=== PATIENT | female | born 1960 | race Caucasian/White ===

== ENCOUNTER → 2016-11-11 | Outpatient (CLI) | payer OTHER ==
[2016-11-11 13:41] VITALS: BP 155/90; PULSE 71; RESP 16; TEMP 98.6
--- NOTE | 2016-11-11 13:42 | P.HPBAR ---
Bariatric H&P - History & Physicial H&P Date: 11/11/16 History & Physicial: Visit/CC: Band Adj Patient initial contact: Initial weight: 84.964 kg Initial weight in pounds: 187.00 Height: Initial BMI: Last weight: Current weight: 84.964 kg Current weight in pounds: 187.00 Current BMI: [place] body weight (based on NIH guidelines): Excess body weight loss: The patient is a 56 year-old F who presents for Bariatric Assessment. Presents today for lab band follow. She's not been seen several years. She had her lap band performed in June 2013. Patient's had dysphagia for approximately 2 months. Past Medical History Past Medical History: GERD/Reflux, Hypertension, Thyroid Disorder History of Any Multi-Drug Resistant Organisms: None Reported Past Surgical History: Appendectomy, Bariatric Surgery, Section, Cholecystectomy, Hysterectomy Past Anesthesia/Blood Transfusion Reactions: No Reported Reaction Past Psychological History: No Psychological Hx Reported Smoking Status: Never smoker Past Alcohol Use History: None Reported Past Drug Use History: None Reported Surgical - Exam Vital Signs Temp Pulse Resp BP 98.6 F 71 16 155/90 11/11/16 13:37 11/11/16 13:37 11/11/16 13:37 11/11/16 13:37 - General well developed, no distress - Eyes PERRL - ENT normal pinna - Respiratory normal expansion - Cardiovascular Rhythm: regular - Abdomen Abdomen: soft, non tender Hernia: incisional (Small incisional hernia located umbilicus) Bariatric Assessment & Plan Plan: The patient has had dysphagia and GERD. Her LAP-BAND was emptied. 5 mL removed LAP-BAND. She'll follow-up in one month. Bariatric Checklist Checklist: Plan: Checklist: EGD: 1. Hiatal hernia: 2. H. Pylori: HgbA1c: Vitamin D: Smoking: Never smoker Primary care physician referral: Psychiatry clearance: Cardiology clearance: Sleep study: Diet journal: VTE risk score: VTE risk level: Rehab needs at discharge:
--- NOTE | 2016-11-11 14:38 | FL ---
EXAMINATION TYPE: FL barium swallow DATE OF EXAM ORDERED: 11/11/2016 2:29 PM HISTORY: GERD following lap band procedure. COMPARISON: None. FINDINGS: A billiard table mechanic film demonstrates cholecystectomy clips in the right upper quadrant. A lap band is in place with normal orientation. The patient drank barium of these. There is minimal holdup at the level of the lap band. There was pr ompt contrast of the contrast through the lap band and into the stomach. There was no evidence of pro lapse. IMPRESSION: STATUS POST LAP BAND.
== END | disposition home or self-care (01) ==
LOC: BARWHC3 12:54
PROVIDERS: ATTEND Surgery
DX: Z48.815 Encounter for surgical aftercare following surgery on the digestive system (principal); R13.10 Dysphagia, unspecified; K21.9 Gastro-esophageal reflux disease without esophagitis; Z98.84 Bariatric surgery status; Z98.890 Other specified postprocedural states
CPT/HCPCS: 74220; 99212

== ENCOUNTER → 2016-12-09 | Outpatient (CLI) | payer OTHER ==
[2016-12-09 14:14] VITALS: BP 167/94; PULSE 80; RESP 16; TEMP 98.7
--- NOTE | 2016-12-09 16:34 | P.HPBAR ---
Bariatric H&P - History & Physicial H&P Date: 12/09/16 History & Physicial: Visit/CC: band fill Patient initial contact: Initial weight: 84.964 kg Initial weight in pounds: 187.31 Height: Initial BMI: Last weight: Current weight: 86.239 kg Current weight in pounds: 190.00 Current BMI: [place] body weight (based on NIH guidelines): Excess body weight loss: The patient is a 56 year-old F who presents for Bariatric Assessment. Patient presents today for [place] adjusted. She currently feels hungry. She has some complaints of a small incisional hernia at her umbilicus. Past Medical History Past Medical History: GERD/Reflux, Hypertension, Thyroid Disorder History of Any Multi-Drug Resistant Organisms: None Reported Past Surgical History: Appendectomy, Bariatric Surgery, Section, Cholecystectomy, Hysterectomy Past Anesthesia/Blood Transfusion Reactions: No Reported Reaction Past Psychological History: No Psychological Hx Reported Smoking Status: Never smoker Past Alcohol Use History: None Reported Past Drug Use History: None Reported Surgical - Exam Vital Signs Temp Pulse Resp BP 98.7 F 80 16 167/94 12/09/16 14:11 12/09/16 14:11 12/09/16 14:11 12/09/16 14:11 - General well developed, no distress - Eyes PERRL - ENT normal pinna - Neck no masses - Respiratory normal expansion - Cardiovascular Rhythm: regular - Abdomen Abdomen: soft Hernia: incisional (Small incisional hernia located at the umbilicus) Bariatric Assessment & Plan Plan: Patient LAP-BAND adjustment. She had 1 mL added to her band. Patient was scheduled on January 08 for laparoscopic robotic system repair of incisional hernia. Bariatric Checklist Checklist: Plan: Checklist: EGD: 1. Hiatal hernia: 2. H. Pylori: HgbA1c: Vitamin D: Smoking: Never smoker Primary care physician referral: Psychiatry clearance: Cardiology clearance: Sleep study: Diet journal: VTE risk score: VTE risk level: Rehab needs at discharge:
== END | disposition home or self-care (01) ==
LOC: BARWHC3 13:04
PROVIDERS: ATTEND Surgery
DX: Z48.815 Encounter for surgical aftercare following surgery on the digestive system (principal); Z98.84 Bariatric surgery status; K43.2 Incisional hernia without obstruction or gangrene
CPT/HCPCS: 99212

== ENCOUNTER 2017-01-29 06:52 | Observation (INO) | payer OTHER ==
[2017-01-27 15:53] VITALS: BMI 30.7
[~2017-01-29 06:52] MED LIST: DEXAMETHASONE SOD PHOSPHATE 10 MG/ML 1 ML VIAL IV ONE; FAMOTIDINE 20 MG/2 ML VIAL IV PRN; HEPARIN SODIUM,PORCINE 5,000 UNIT/ML 1 ML VIAL SQ ONE; LIDOCAINE 1% 20 ML VIAL (10MG/ML) FOR IV START INTRADERMA PRN; MIDAZOLAM 2 MG/2 ML VIAL IV PRN; ceFAZolin 2 GM in SODIUM CHLORIDE 0.9% 100 ML IVPB ONE
--- NOTE | 2017-01-29 08:02 | P.GSHP ---
History of Present Illness H&P Date: 01/29/17 Chief Complaint: Incarcerated incisional hernia This is a 56-year-old female who presents today for laparoscopic robotic assistance repair of incarcerated incisional hernia. Patient has developed a mass at the superior portion of her low midline incision. - Constitutional Constitutional: Reports as per HPI Past Medical History Past Medical History: GERD/Reflux, Hypertension, Thyroid Disorder Additional Past Medical History / Comment(s): HAS LAP BAND History of Any Multi-Drug Resistant Organisms: None Reported Past Surgical History: Appendectomy, Bariatric Surgery, Section, Cholecystectomy, Hysterectomy Additional Past Surgical History / Comment(s): LAP BAND 2014 Past Anesthesia/Blood Transfusion Reactions: No Reported Reaction Past Psychological History: No Psychological Hx Reported Smoking Status: Never smoker Past Alcohol Use History: Occasional Past Drug Use History: None Reported - Past Family History Mother Family Medical History: No Reported History Medications and Allergies Home Medications Medication Instructions Recorded Confirmed Type Diovan (Unknown Dose) 1 tab PO DAILY 01/27/17 01/29/17 History Synthroid (Unknown Dose) 1 tab PO DAILY 01/27/17 01/29/17 History Allergies Allergy/AdvReac Type Severity Reaction Status Date / Time No Known Allergies Allergy Verified 01/29/17 07:18 Surgical - Exam Vital Signs Temp Pulse Resp BP Pulse Ox 97.9 F 67 18 180/85 97 01/29/17 07:16 01/29/17 07:16 01/29/17 07:16 01/29/17 07:16 01/29/17 07:16 - General well developed, no distress - Eyes PERRL - ENT normal pinna - Neck no masses - Respiratory normal expansion - Abdomen Abdomen: soft, non tender (5 cm incarcerated incisional hernia located superior portion of midline incision above the umbilicus.) Assessment and Plan Plan: Incarcerated incisional hernia. We'll perform laparoscopic robotic assistance repair.
[2017-01-29] MEDS: LACTATED RINGERS 1,000 ML IV SCH ×2 (08:05→20:23)
[2017-01-29] MEDS: ONDANSETRON 4 MG/2 ML VIAL IVP PRN ×2 (08:06→11:45)
[2017-01-29] MEDS ORDERED: PROPOFOL 10 MG/ML 20 ML VIAL IV ONE (08:12)
[2017-01-29] MEDS ORDERED: ROCURONIUM BROMIDE 10 MG/ML 10 ML VIAL IV ONE (08:12)
[2017-01-29] MEDS ORDERED: NEOSTIGMINE 1 MG/ML 10 ML VIAL ONE (08:12)
[2017-01-29] MEDS ORDERED: fentaNYL (PF) 50 MCG/ML 2 ML AMP ONE (08:12)
[2017-01-29] MEDS ORDERED: KETOROLAC 30 MG/ML 1 ML VIAL ONE (08:12)
[2017-01-29] MEDS ORDERED: GLYCOPYRROLATE 0.2 MG/ML 2 ML VIAL ONE (08:12)
[2017-01-29] MEDS ORDERED: SUCCINYLCHOLINE CHLORIDE 100 MG/5 ML SYR IV ONE (08:12)
[2017-01-29] MEDS ORDERED: MIDAZOLAM 2 MG/2 ML VIAL ONE (08:12)
[2017-01-29] MEDS ORDERED: BUPIVACAIN-EPI 0.25%-1:200,000 30 ML VIAL SQ ONE ×2 (08:37→08:48)
[2017-01-29] MEDS ORDERED: ACETAMINOPHEN TAB 325 MG TAB PO PRN (10:07)
[2017-01-29] MEDS ORDERED: NALOXONE 0.4 MG/ML 1 ML VIAL IV PRN (10:07)
[2017-01-29] MEDS ORDERED: LACTATED RINGERS 1,000 ML IV ONE (10:07)
[2017-01-29] MEDS ORDERED: HYDROcodone/APAP 5-325MG 1 EACH TAB PO PRN (10:07)
[2017-01-29] MEDS ORDERED: ACETAMINOPHEN IV (For NPO) 1,000 MG in EMPTY BAG 1 BAG IVPB ONE (10:07)
--- NOTE | 2017-01-29 10:15 | P.OP ---
Date of Procedure: 01/29/17 Preoperative Diagnosis: Incarcerated incisional hernia Postoperative Diagnosis: Adhesions Incarcerated incisional hernia Procedure(s) Performed: Laparoscopic robotic-assisted repair of incarcerated incisional hernia Laparoscopic lysis of adhesions Anesthesia: MELISA Surgeon: Ayaan Valentine Estimated Blood Loss (ml): 15 Pathology: none sent Condition: stable Disposition: PACU Description of Procedure: The patient's placed the operative table in the supine position. She received general anesthesia. Her abdomen was prepped and draped in the usual sterile fashion. The abdomen skin incision sites were anesthetized 1% local Xylocaine. Next using an 11 blade a skin incision was made and left quadrant and then using a 5 mm blade was trocar under direct visualization the peritoneal cavity was entered. And then the abdomen was then insufflated. After adequate insufflation the laparoscope placed back into the peritoneal cavity. Patient was noted to have significant adhesions along her low midline incision. Next a 8 mm robotic trocar was placed in the left lower quadrant and then a 12 mm trocar was placed the left lateral position after the patient was placed in the left side up position. The original 5 mm trocar was exchanged for an 8 mm trocar and then the patient was docked to the da Ha robot. Using electrocautery the adhesions taken down the midline during the dissection of the adhesions there was a serosal tear of the small bowel. The serosal tear was examined there appeared to be no evidence of perforation of the bowel the serosal tear was repaired using 3-0 Vicryl suture. The hernia was visualized. The incarcerated omentum was reduced. And then the hernia was repaired with OV lock suture. After the fascial repair was performed the hernia repair was buttressed with ventral light ST mesh. The mesh was secured with 20 the lock suture. Patient sent to recovery in stable condition At this point the patient was undocked the robot. The needles were retrieved. The abdomen was irrigated with the laparoscopic irrigation is no bleeding seen. The 12 mm trocar was withdrawn and then the [place] suture passer used to close the 12 mm trocar site. The trochars withdrawn. And then the skin was closed interrupted 3-0 Monocryl suture. Dermabond dressings was applied. Patient was sent to recovery in stable condition.
[2017-01-29] MEDS: HYDROmorphone 1 MG/ML 1 ML SYRINGE IVP PRN ×6 (10:26→22:24)
[2017-01-29] MEDS: KETOROLAC 30 MG/ML 1 ML VIAL IVP SCH ×2 (12:37→18:33)
[2017-01-30] MEDS: KETOROLAC 30 MG/ML 1 ML VIAL IVP SCH ×2 (00:35→05:58)
[2017-01-30 01:02] VITALS: RESP 16
[2017-01-30 06:57] LABS: Basophils % (A) 0 %; CH 31.3; CHCM 34.1; Eosinophils % (A) 0 %; HCT 33.3 % (34.0-46.0); HDW 2.52; Luc # (Auto) 0.11; Luc % (Auto) 1; Lymphocytes # (A) 1.7 k/uL (1.0-4.8); Lymphocytes % (A) 18 %; MCH 30.4 pg (25.0-35.0); MCHC 32.9 g/dL (31.0-37.0); MCV 92.2 fL (80.0-100.0); Mean Platelet Volume 7.8; Monocytes # (A) 0.5 k/uL (0-1.0); Monocytes % (A) 5 %; Neutrophils # (A) 7.3 k/uL (1.3-7.7); Neutrophils % (A) 77 %; RBC 3.61 m/uL (3.80-5.40); WBC 9.6 k/uL (3.8-10.6); WBC (Perox) 9.32
[2017-01-30 08:23] VITALS: BP 131/75; PULSE 62
[2017-01-30 08:55] VITALS: TEMP 98.1
[2017-01-30] MEDS ORDERED: LEVOTHYROXINE 125 MCG TAB PO SCH (09:00)
[2017-01-30] MEDS ORDERED: VALSARTAN 160 MG TAB PO SCH (09:00)
[2017-01-30] MEDS ORDERED: ENOXAPARIN 40 MG/0.4 ML SYRINGE SQ SCH (09:00)
--- NOTE | 2017-01-30 10:53 | P.DS ---
Providers Date of admission: 01/30/17 00:17 Expected date of discharge: 01/30/17 Attending physician: Ayaan Valentine Consults: 01/29/17 10:07 Consult Physician Routine Consulting Provider: Steven Frazier Consult Reason/Comments: Medical management Do you want consulting provider notified?: Yes Primary care physician: Stated None Hospital Course: Patient is a 56-year-old female with medical history significant for incarcerated incisional hernia. Patient presented to the hospital for elective robotic assistance repair of incarcerated incisional hernia. Patient also underwent laparoscopic lysis of adhesions. Patient tolerated procedure well. Patient had an uneventful postoperative course. Patient was deemed stable for discharge to home with close follow-up in the outpatient setting. Discharge diagnoses: Adhesions status post laparoscopic lysis of adhesions. Incarcerated incisional hernia status post laparoscopic robotic-assisted repair of incarcerated incisional hernia. The above impression and plan have been discussed and directed by Dr. Valentine. Moe CAREY acting as scribe for Dr. Valentine. Procedures: Laparoscopic robotic-assisted repair of incarcerated incisional hernia; Laparoscopic lysis of adhesions Patient Condition at Discharge: Good Plan - Discharge Summary New Discharge Prescriptions: Docusate [Colace] 100 mg PO BID #20 capsule HYDROcodone/APAP 7.5-325MG [[place] 7.5-325] 1 tab PO Q6HR PRN #28 tab PRN Reason: Pain Discharge Medication List Levothyroxine Sodium [Synthroid] 125 mcg PO DAILY 01/27/17 [History] Valsartan [Diovan] 160 mg PO DAILY 01/27/17 [History] Docusate [Colace] 100 mg PO BID #20 capsule 01/30/17 [Rx] HYDROcodone/APAP 7.5-325MG [[place] 7.5-325] 1 tab PO Q6HR PRN #28 tab 01/30/17 [ Rx] Follow up Appointment(s)/Referral(s): Steven Frazier MD [STAFF PHYSICIAN] - 1 Week Ayaan Valentine MD [STAFF PHYSICIAN] - 1 Week Patient Instructions/Handouts: Laparoscopic Herniorrhaphy (DC) Activity/Diet/Wound Care/Special Instructions: No heavy lifting, pushing, or pulling items greater than 10 pounds. Full liquid diet for 2 days then advance to regular diet Shower daily, no soaking in bath tubs, pools, or hot tubs. No driving while taking pain medication. Notify surgeon with any signs or symptoms of infection, increased pain, or not tolerating diet. Discharge Disposition: HOME SELF-CARE
== END 2017-01-30 11:58 | disposition home or self-care (01) ==
LOC: OR 06:52 → 6PED 10:04 → OR 01-30 00:17
PROVIDERS: ADMIT Surgery; ATTEND Surgery
DX: K43.0 Incisional hernia with obstruction, without gangrene (principal); K21.9 Gastro-esophageal reflux disease without esophagitis; K66.0 Peritoneal adhesions (postprocedural) (postinfection); I10 Essential (primary) hypertension; E07.9 Disorder of thyroid, unspecified; Z98.84 Bariatric surgery status; Z79.899 Other long term (current) drug therapy
CPT/HCPCS: 49329; 49655; S2900; 85025; 96361; 96374; 96376

== ENCOUNTER → 2017-02-10 | Outpatient (CLI) | payer OTHER ==
[2017-02-10 13:56] VITALS: BP 128/77; PULSE 71; TEMP 98.1; BMI 30.9
--- NOTE | 2017-02-10 14:52 | P.HPBAR ---
Bariatric H&P - History & Physicial H&P Date: 02/10/17 History & Physicial: Visit/CC: follow up visit from hernia repair Patient initial contact: Initial weight: 84.964 kg Initial weight in pounds: 187.31 Height: 5 ft 6 in Initial BMI: 30.2 Last weight: Current weight: 87.09 kg Current weight in pounds: 192.00 Current BMI: 30.9 [place] body weight (based on NIH guidelines): 58.967 kg Excess body weight loss: The patient is a 56 year-old F who presents for Bariatric Assessment. The patient presents today in the bariatric clinic clinic. She is status post ventral hernia repair. She has some minimal complaints of pain near her laparoscopic incisions. Review of Systems Constitutional: Reports as per HPI Past Medical History Past Medical History: GERD/Reflux, Hypertension, Thyroid Disorder Additional Past Medical History / Comment(s): HAS LAP BAND History of Any Multi-Drug Resistant Organisms: None Reported Past Surgical History: Appendectomy, Bariatric Surgery, Section, Cholecystectomy, Hernia Repair, Hysterectomy Additional Past Surgical History / Comment(s): LAP BAND 2014 Past Anesthesia/Blood Transfusion Reactions: No Reported Reaction Past Psychological History: No Psychological Hx Reported Smoking Status: Never smoker Past Alcohol Use History: Occasional Past Drug Use History: None Reported - Past Family History Mother Family Medical History: No Reported History Father History Unknown: Yes Family Medical History: Hypertension, Liver Disease, Myocardial Infarction ([place]) Surgical - Exam Vital Signs Temp Pulse BP 98.1 F 71 128/77 02/10/17 13:50 02/10/17 13:50 02/10/17 13:50 - General well developed, no distress - Eyes PERRL - ENT normal pinna - Neck no masses - Respiratory normal expansion - Cardiovascular Rhythm: regular - Abdomen Abdomen: soft, non tender Bariatric Assessment & Plan Plan: Status post laparoscopic robotic-assisted repair of ventral hernia. Patient did quite well. The patient will follow-up with bariatric clinic in 1 month. Bariatric Checklist Checklist: Plan: Checklist: EGD: 1. Hiatal hernia: 2. H. Pylori: HgbA1c: Vitamin D: Smoking: Never smoker Primary care physician referral: dr Calixto Psychiatry clearance: Cardiology clearance: Sleep study: Diet journal: VTE risk score: VTE risk level: Rehab needs at discharge:
== END | disposition home or self-care (01) ==
LOC: BARWHC3 12:42
PROVIDERS: ATTEND Surgery
DX: Z09 Encounter for follow-up examination after completed treatment for conditions other than malignant neoplasm (principal); K21.9 Gastro-esophageal reflux disease without esophagitis; I10 Essential (primary) hypertension; Z98.84 Bariatric surgery status
CPT/HCPCS: 99211

== ENCOUNTER → 2017-03-10 | Outpatient (CLI) | payer OTHER ==
[2017-03-10 15:48] VITALS: BP 131/83; PULSE 84; RESP 16; TEMP 98.5; BMI 31.4
--- NOTE | 2017-03-10 16:16 | P.HPBAR ---
Bariatric H&P - History & Physicial H&P Date: 03/10/17 History & Physicial: Visit/CC: bariatric follow up Patient initial contact: Initial weight: 84.964 kg Initial weight in pounds: 187.31 Height: 5 ft 6 in Initial BMI: 30.2 Last weight: Current weight: 88.133 kg Current weight in pounds: 194.30 Current BMI: 31.4 [place] body weight (based on NIH guidelines): 58.967 kg Excess body weight loss: The patient is a 56 year-old F who presents for Bariatric Assessment. Patient states that she has some complaints in the left lower quadrant. She also has some pain over her low midline incision. She's had weight gain. She is requesting a fill. Past Medical History Past Medical History: GERD/Reflux, Hypertension, Thyroid Disorder Additional Past Medical History / Comment(s): HAS LAP BAND History of Any Multi-Drug Resistant Organisms: None Reported Past Surgical History: Appendectomy, Bariatric Surgery, Section, Cholecystectomy, Hernia Repair, Hysterectomy Additional Past Surgical History / Comment(s): LAP BAND 2013 Past Anesthesia/Blood Transfusion Reactions: No Reported Reaction Past Psychological History: No Psychological Hx Reported Smoking Status: Never smoker Past Alcohol Use History: Occasional Past Drug Use History: None Reported - Past Family History Mother Family Medical History: No Reported History Father History Unknown: Yes Family Medical History: Hypertension, Liver Disease, Myocardial Infarction ([place]) Surgical - Exam Vital Signs Temp Pulse Resp BP 98.5 F 84 16 131/83 03/10/17 15:43 03/10/17 15:43 03/10/17 15:43 03/10/17 15:43 - General well developed, no distress - Eyes PERRL - ENT normal pinna - Neck no masses - Respiratory normal expansion - Cardiovascular Rhythm: regular - Abdomen Abdomen: soft, non tender Bariatric Assessment & Plan Plan: The patient LAP-BAND was adjusted. She had 0.5 mL added to her band. She currently is 4.5 mL in the band. She will follow-up in one month recheck. Bariatric Checklist Checklist: Plan: Checklist: EGD: 1. Hiatal hernia: 2. H. Pylori: HgbA1c: Vitamin D: Smoking: Never smoker Primary care physician referral: dr Calixto Psychiatry clearance: Cardiology clearance: Sleep study: Diet journal: VTE risk score: VTE risk level: Rehab needs at discharge:
== END | disposition home or self-care (01) ==
LOC: BARWHC3 14:31
PROVIDERS: ATTEND Surgery
DX: Z09 Encounter for follow-up examination after completed treatment for conditions other than malignant neoplasm (principal); I10 Essential (primary) hypertension; K21.9 Gastro-esophageal reflux disease without esophagitis; Z98.84 Bariatric surgery status
CPT/HCPCS: 99211

== ENCOUNTER → 2018-06-15 | Outpatient (CLI) | payer BC ==
--- NOTE | 2018-06-15 16:56 | US ---
EXAMINATION TYPE: US thyroid st tissue head/neck DATE OF EXAM: 06/15/2018 COMPARISON: NONE CLINICAL HISTORY: 57-year-old female E03.9 Acquired hypothyroidism. TECHNIQUE: Multiple sonographic images of the thyroid gland are obtained. FINDINGS: GLAND SIZE: Right Lobe: 1.7 x 1.1 x 1.1 cm Overall Parenchyma: heterogenous Left Lobe: 3.1 x 1.0 x 1.0 cm Overall Parenchyma: heterogeneous Isthmus Thickness: 0.2 cm NODULES RIGHT: # of nodules measured on right: 0 LEFT: # of nodules measured on left: 0 ISTHMUS: # of nodules measured in the isthmus: 0 Bilateral neck scanned, no evidence of lymphadenopathy. IMPRESSION: Small heterogeneous gland in keeping with chronic hypothyroidism. No discrete nodule.
== END ==
LOC: RADUSWWP 12:07
PROVIDERS: ATTEND Internal Medicine
DX: E03.9 Hypothyroidism, unspecified (principal)
CPT/HCPCS: 76536

== ENCOUNTER → 2020-11-28 | Outpatient (CLI) | payer BC ==
--- NOTE | 2020-11-30 11:43 | MM ---
Reason for exam: screening (asymptomatic). Last mammogram was performed 17 years and 4 months ago. Physical Findings: A clinical breast exam by your physician is recommended on an annual basis and results should be correlated with mammographic findings. MG 3D Screening Mammo W/Cad Bilateral CC and MLO view(s) were taken. No prior studies available for comparison. The breast tissue is heterogeneously dense. This may lower the sensitivity of mammography. Finding: There are typically benign coarse heterogeneous, diffuse/scattered calcifications in both breasts. Focal asymmetry 6 o'clock middle position. ASSESSMENT: Probably benign, BI-RAD 3 RECOMMENDATION: Follow-up diagnostic mammogram of the right breast in 6 months.
== END | disposition home or self-care (01) ==
LOC: RADMAMWWP 08:03
PROVIDERS: ATTEND Internal Medicine
DX: Z12.31 Encounter for screening mammogram for malignant neoplasm of breast (principal)
CPT/HCPCS: 77063; 77067

== ENCOUNTER → 2021-03-05 | Outpatient (CLI) | payer BC ==
[2021-03-05 13:27] VITALS: BP 158/88; PULSE 80; RESP 18; TEMP 98.4; BMI 37.5
--- NOTE | 2021-03-13 12:44 | P.HPBAR ---
Bariatric H&P - History & Physicial H&P Date: 03/05/21 History & Physicial: Visit/CC: follow up / lap band Patient initial contact: Initial weight: 84.964 kg Initial weight in pounds: 187.31 Height: 5 ft 3 in Initial BMI: 33.1 Last weight: Current weight: 96.162 kg Current weight in pounds: 212.00 Current BMI: 37.5 [place] body weight (based on NIH guidelines): 52.163 kg Excess body weight loss: The patient is a 60 year-old F who presents for Bariatric Assessment. Patient resents today for LAP-BAND follow-up. She's had complete GERD. Past Medical History Past Medical History: GERD/Reflux, Hypertension, Thyroid Disorder Additional Past Medical History / Comment(s): HAS LAP BAND History of Any Multi-Drug Resistant Organisms: None Reported Past Surgical History: Appendectomy, Bariatric Surgery, Section, Cholecystectomy, Hernia Repair, Hysterectomy Additional Past Surgical History / Comment(s): LAP BAND 2014 Past Anesthesia/Blood Transfusion Reactions: No Reported Reaction Past Psychological History: No Psychological Hx Reported Smoking Status: Never smoker, Second hand smoke exposure Past Alcohol Use History: Occasional Past Drug Use History: None Reported - Past Family History Mother Family Medical History: No Reported History Father History Unknown: Yes Family Medical History: Hypertension, Liver Disease, Myocardial Infarction ([place]) Surgical - Exam Vital Signs Temp Pulse Resp BP 98.4 F 80 18 158/88 03/05/21 13:19 03/05/21 13:19 03/05/21 13:19 03/05/21 13:19 - General well developed, well nourished, no distress - Eyes PERRL - ENT normal pinna - Neck no masses - Respiratory normal expansion - Cardiovascular Rhythm: regular - Abdomen Abdomen: soft, non tender Bariatric Assessment & Plan Plan: Patient's lap band adjustment she had 1 mL removed from her LAP-BAND. She'll follow-up in 4 weeks. Bariatric Checklist Checklist: Plan: Checklist: EGD: 1. Hiatal hernia: 2. H. Pylori: HgbA1c: Vitamin D: Smoking: Never smoker Primary care physician referral: Dr. Torres Psychiatry clearance: Cardiology clearance: Sleep study: Diet journal: VTE risk score: VTE risk level: Rehab needs at discharge:
== END ==
LOC: BARWHC3 13:03
PROVIDERS: ATTEND Surgery
DX: Z46.51 Encounter for fitting and adjustment of gastric lap band (principal); I10 Essential (primary) hypertension; Z98.84 Bariatric surgery status
CPT/HCPCS: 99212

== ENCOUNTER → 2021-03-12 | Outpatient (CLI) | payer BC ==
[2021-03-12 13:21] VITALS: BP 137/83; PULSE 71; RESP 18; TEMP 98.5; BMI 34.0
--- NOTE | 2021-04-19 13:00 | P.HPBAR ---
Bariatric H&P - History & Physicial H&P Date: 03/12/21 History & Physicial: Visit/CC: lap band follow up Patient initial contact: Initial weight: 84.964 kg Initial weight in pounds: 187.31 Height: 5 ft 6 in Initial BMI: 30.2 Last weight: Current weight: 95.708 kg Current weight in pounds: 211.00 Current BMI: 34.0 [place] body weight (based on NIH guidelines): 58.967 kg Excess body weight loss: The patient is a 60 year-old F who presents for Bariatric Assessment. Patient presents today for lab band follow. She's had some complaints of GERD. There has improved. Past Medical History Past Medical History: GERD/Reflux, Hypertension, Thyroid Disorder Additional Past Medical History / Comment(s): HAS LAP BAND History of Any Multi-Drug Resistant Organisms: None Reported Past Surgical History: Appendectomy, Bariatric Surgery, Section, Cholecystectomy, Hernia Repair, Hysterectomy Additional Past Surgical History / Comment(s): LAP BAND 2014 Past Anesthesia/Blood Transfusion Reactions: No Reported Reaction Past Psychological History: No Psychological Hx Reported Smoking Status: Never smoker, Second hand smoke exposure Past Alcohol Use History: Occasional Past Drug Use History: None Reported - Past Family History Mother Family Medical History: No Reported History Father History Unknown: Yes Family Medical History: Hypertension, Liver Disease, Myocardial Infarction ([place]) Surgical - Exam Vital Signs Temp Pulse Resp BP 98.5 F 71 18 137/83 03/12/21 13:16 03/12/21 13:16 03/12/21 13:16 03/12/21 13:16 - General well developed, well nourished, no distress - Eyes PERRL - ENT normal pinna - Neck no masses - Respiratory normal expansion - Cardiovascular Rhythm: regular - Abdomen Abdomen: soft, non tender Bariatric Assessment & Plan Plan: Morbid obesity resolving. Patient is improving. She'll follow-up in 4 weeks. Bariatric Checklist Checklist: Plan: Checklist: EGD: 1. Hiatal hernia: 2. H. Pylori: HgbA1c: Vitamin D: Smoking: Never smoker Primary care physician referral: Dr. Torres Psychiatry clearance: Cardiology clearance: Sleep study: Diet journal: VTE risk score: VTE risk level: Rehab needs at discharge:
== END ==
LOC: BARWHC3 12:47
PROVIDERS: ATTEND Surgery
DX: E66.01 Morbid (severe) obesity due to excess calories (principal); K21.9 Gastro-esophageal reflux disease without esophagitis; I10 Essential (primary) hypertension; Z98.84 Bariatric surgery status; Z68.34 Body mass index [BMI] 34.0-34.9, adult
CPT/HCPCS: 99211

== ENCOUNTER → 2023-12-04 | Outpatient (CLI) | payer MEDICARE ==
--- NOTE | 2023-12-07 16:59 | MM ---
Reason for Exam: Screening (asymptomatic). Last mammogram was performed 3 year(s) and 0 month(s) ago. Patient History: Menarche at age 10. Patient has no children. Hysterectomy at age 35. Risk Values: Janet 5 year model risk: 1.8%. NCI Lifetime model risk: 6.9%. Prior Study Comparison: 12/31/2000 Bilateral Diagnostic Mammogram, [facility]. 08/09/2003 Bilateral Screening Mammogram, [facility]. 11/28/2020 Bilateral Screening Mammogram, [facility]. Tissue Density: There are scattered areas of fibroglandular density. Findings: Analyzed By CAD. Benign punctate and round calcifications on both sides. Unchanged bilateral areas of asymmetric density. Chronic nodularity inferior right breast. There is no suspicious group of microcalcifications or new suspicious mass in either breast. Overall Assessment: Benign, BI-RAD 2 Management: Screening Mammogram of both breasts in 1 year. . Patient should continue monthly self-breast exams. A clinical breast exam by your physician is recommended on an annual basis. This exam should not preclude additional follow-up of suspicious palpable abnormalities. Note on Janet scores and lifetime risk: 1. A Janet score greater than 3% is considered moderate risk. If this is the case, consider specialist referral to assess eligibility for a risk reducing agent. 2. If overall lifetime risk for the development of breast cancer is 20% or higher, the patient may qualify for future screening with alternating mammogram and breast MRI. Electronically signed and approved by: Puneet Clark M.D. Radiologist
== END | disposition home or self-care (01) ==
LOC: RADMAMWWP 15:13
PROVIDERS: ATTEND Obstetrics & Gynecology
DX: Z12.31 Encounter for screening mammogram for malignant neoplasm of breast (principal)
CPT/HCPCS: 77063; 77067

== ENCOUNTER → 2025-01-25 | Outpatient (CLI) | payer MEDICARE ==
--- NOTE | 2025-01-25 14:10 | MM ---
Reason for Exam: Screening (asymptomatic). Last mammogram was performed 1 year(s) and 1 month(s) ago. Patient History: Menarche at age 10. Patient has no children. Hysterectomy at age 35. Risk Values: Janet 5 year model risk: 1.9%. NCI Lifetime model risk: 6.7%. Tissue Density: The breasts are heterogeneously dense, which may obscure small masses. Findings: There are scattered small benign-appearing round calcifications bilaterally redemonstrated. Stable circumscribed 11 mm mass in the middle of the slightly inferior aspect right breast. Benign-appearing bilateral axillary lymph nodes are redemonstrated. There is no suspicious new group of microcalcifications or new suspicious mass in either breast. Overall Assessment: Benign, BI-RAD 2 Management: Screening Mammogram of both breasts in 1 year. . Patient should continue monthly self-breast exams. A clinical breast exam by your physician is recommended on an annual basis. This exam should not preclude additional follow-up of suspicious palpable abnormalities. Note on Janet scores and lifetime risk: 1. A Janet score greater than 3% is considered moderate risk. If this is the case, consider specialist referral to assess eligibility for a risk reducing agent. 2. If overall lifetime risk for the development of breast cancer is 20% or higher, the patient may qualify for future screening with alternating mammogram and breast MRI. [facility], , 01/25/2025 2:07 PM. Electronically signed and approved by: Snoido Roper M.D.
== END | disposition home or self-care (01) ==
LOC: RADMAMWWP 12:50
PROVIDERS: ATTEND Internal Medicine
DX: Z12.31 Encounter for screening mammogram for malignant neoplasm of breast (principal); R92.333 Mammographic heterogeneous density, bilateral breasts; R92.1 Mammographic calcification found on diagnostic imaging of breast
CPT/HCPCS: 77063; 77067